=== PATIENT | male | born 1965 | race Caucasian/White ===

== ENCOUNTER 2018-12-01 03:32 | Emergency (ER) | payer BC ==
[~2018-12-01] VITALS: Ht 180.3 cm; Wt 106.6 kg
[~2018-12-01 03:32] MED LIST: FLAGYL500 MG PO; IBUPROFEN 200200 M1 PO; IBUPROFEN 800800 M1 PO; MOBIC15 MG PO; NOHOMEMEDICATIONS; NORCO 7.5-3251 EACH PO; TRAMADOL 50 MG50 MG PO; ZOSYN 3.3753.375 GM IV
[2018-12-01 03:34] VITALS: BP 204/98
[2018-12-01] MEDS ORDERED: IBUPROFEN 800800 M1 PO (04:13)
[2018-12-01] MEDS ORDERED: NORFLEX100 MG PO (04:13)
[2018-12-01] MEDS ORDERED: NORCO 5-325 TA1 EAC1 PO (04:13)
== END 2018-12-01 04:41 | disposition home or self-care (01) ==
LOC: ER 03:32
DX: M54.2 Cervicalgia (principal); I10 Essential (primary) hypertension; Z90.49 Acquired absence of other specified parts of digestive tract

== ENCOUNTER → 2020-06-13 | Outpatient (CLI) | payer BC ==
[~2020-06-13] MED LIST changes: +NORCO 5-325 TA1 EAC1 PO; +NORFLEX100 MG PO
== END ==
LOC: LAB 07:56
PROVIDERS: ATTEND Nurse Practitioner
DX: R05 Cough (principal); Z20.822 Contact with and (suspected) exposure to COVID-19